=== PATIENT | male | born 1990 | race Hispanic/Latino ===

== ENCOUNTER 2022-04-17 10:14 | Emergency (ER) | payer OTHER ==
[~2022-04-17] VITALS: Ht 175.3 cm; Wt 120.2 kg
[2022-04-17 11:08] LABS: CREATININE 0.7 mg/dL (0.5-1.5)
[2022-04-17 11:10] LABS: BASOPHILS % (AUTO) 0.5 % (0.0-5.0); EOSINOPHILS % (AUTO) 0.6 % (0.0-8.0); HEMATOCRIT 46.9 % (42-54); LYMPHOCYTES % (AUTO) 23.1 % (21.0-51.0); MEAN CORPUSCULAR HEMOGLOBIN 31.3 pg (27.0-33.0); MEAN CORPUSCULAR HGB CONC 34.8 g/dL (32.0-36.0); NEUTROPHILS % (AUTO) 64.3 % (40.0-77.0); PLATELET COUNT (AUTO) 280 K/uL (130-400); RED BLOOD CELL COUNT(AUTO) 5.21 MIL/uL (4.50-6.20); RED CELL DISTRIBUTION WIDTH 12.2 % (11.0-15.5); WHITE BLOOD COUNT (AUTO) 11.1 K/uL (4.8-10.8)
[2022-04-17 11:13] LABS: ALBUMIN 4.1 g/dL (3.5-5.0); BILIRUBIN,TOTAL 0.9 mg/dL (0.2-1.0); CRP QUANTITATIVE 26.1 mg/L (0.00-9.0); URIC ACID 2.4 mg/dL (2.6-7.2)
[2022-04-17 11:28] LABS: APPEARANCE,URINE Clear (CLEAR); BILIRUBIN,URINE Negative (NEGATIVE); COLOR,URINE Yellow (YELLOW); GLUCOSE, URINE (UA) Negative (NEGATIVE); KETONES,URINE Negative (NEGATIVE); LEUKOCYTE ESTERASE ,URINE Negative (NEGATIVE); NITRATE,URINE Negative (NEGATIVE); OCCULT BLOOD,URINE Negative (NEGATIVE); PROTEIN,URINE Negative (NEGATIVE)
[2022-04-17] MEDS ORDERED: KETOROLAC 30MG VIAL (30MG/ML) IVP ONE (12:30)
[2022-04-17] MEDS ORDERED: DEXAMETHASONE SOD PHOSPHATE 4 MG/ML 1ML VIAL IV ONE (12:30)
[2022-04-17 12:32] LABS: ERYTHROCYTE SEDIMENTATION RATE 9 MM/HR (0-15)
[2022-04-17] MEDS ORDERED: CEFTRIAXONE 1G VIAL ONE (14:31)
[2022-04-17 14:37] VITALS: BP 136/80
[2022-04-17] MEDS ORDERED: CEFTRIAXONE 1G VIAL IVP ONE (15:00)
[2022-04-17] MEDS ORDERED: IBUP-2077 PO (15:26)
[2022-04-17] MEDS ORDERED: ACET-2079 PO (15:26)
[2022-04-17] MEDS ORDERED: CEPH500B PO (15:26)
== END 2022-04-17 15:43 | disposition home or self-care (01) ==
LOC: EDH 10:14
DX: M25.571 Pain in right ankle and joints of right foot (principal); M25.572 Pain in left ankle and joints of left foot; M79.89 Other specified soft tissue disorders
CPT/HCPCS: 36415; 73600; 73610; 80053; 81003; 82550; 84550; 85025; 85651; 86140; 96374; 96375; 99285; J0696; J1100; J1885